=== PATIENT | male | born 1995 | race Caucasian/White ===

== ENCOUNTER 2020-07-19 16:18 | Emergency (ER) | payer BC ==
--- NOTE | 2020-07-19 17:03 | RAD ---
Exam: 3 views cervical spine HISTORY: Fell on trampoline. [place] a crack a left-sided the neck FINDINGS: Straightening of cervical lordosis is presumed to be due to patient position, muscle spasm or cervical collar. No prevertebral soft tissue swelling. Predental space is maintained. Disc space heights are preserved. Cervical spine vertebral body heights appear to be maintained from C2 through C4. There does appear to be mild loss of vertebral body height C5 and C6. C7 and T1 demonstrate preservation of vertebral body height. On the AP and open-mouth projections, no malalignm ent. Lateral masses of C1 and C2 articulate appropriately. The base of the odontoid process is intact. IMPRESSION: Loss of vertebral body height along the superior endplate of C5 and C6. Better interrogat ion with a CT of the cervical spine is recommended
--- NOTE | 2020-07-19 18:13 | CT ---
Exam: CT cervical spine without contrast HISTORY: Trauma. Pain. COMPARISON: None Correlation: Cervical spine radiograph 07/19/2020 FINDINGS: No craniocervical dissociation. Appropriate alignment of the lateral masses of C1 and C2. Intact odon toid process Appropriate alignment of the facets. Straightening of cervical lordosis is presumed to be due to patient position, muscle spasm or cervica l collar. Soft tissue neck structures: No mass, lymphadenopathy or hematoma. No prevertebral soft tissue swelli ng. Upper mediastinum and lung apices: Unremarkable Central spinal canal: Neural foramina and central spinal canal are patent. Evaluation is limited by t echnique Vertebral bodies: There is mild loss of vertebral body height C5 and C6 with sclerosis along the supe rior endplate suggesting a remote process. No acute cervical spine vertebral body fracture. However, there is an acute fracture involving the C4 spinous process. IMPRESSION: 1. Acute C4 spinous process fracture. 2. Remote injury involving the C5 and C6 superior endplates. No acute cervical spine vertebral body f racture.
[2020-07-19] MEDS ORDERED: HYDROcodone/Acetaminophen 5/325 mg Tablet ONE (18:23)
[2020-07-19] MEDS ORDERED: HYDROcodone/Acetaminophen 10/325 mg Tablet ONE (18:25)
== END 2020-07-19 19:00 | disposition home or self-care (01) ==
LOC: ERS 16:18
DX: S12.300A Unspecified displaced fracture of fourth cervical vertebra, initial encounter for closed fracture (principal); W09.8XXA Fall on or from other playground equipment, initial encounter; Y93.44 Activity, trampolining
CPT/HCPCS: 72040; 72125